=== PATIENT | female | born 1995 | race Caucasian/White ===

== ENCOUNTER 2020-11-28 06:35 | Emergency (ER) | payer SELFPAY ==
[2020-11-28] MEDS ORDERED: Ketorolac 60 MG/2 ML SDV IM ONE (07:09)
[2020-11-28] MEDS ORDERED: Amoxicillin 500 MG Cap PO ONE (07:09)
[2020-11-28] MEDS ORDERED: Lidocaine 2% Viscous Solution 15 ML Cup PO ONE (07:10)
--- NOTE | 2020-11-28 07:16 | EDM.PDOC ---
ED HPI GENERAL MEDICAL PROBLEM - General Chief Complaint: General Stated Complaint: SWOLLEN FACE; INFECTED TOOTH Time Seen by Provider: 11/28/20 06:55 Source of Information: Reports: Patient History Limitations: Reports: No Limitations - History of Present Illness INITIAL COMMENTS - FREE TEXT/NARRATIVE: c/o tooth pain last saw dentist 2y ago, moved from [facility], works at [employer], no local dentist has swell in face no fever scheduled to work this AM Treatments [employer]GER: Reports: Acetaminophen L lower jaw Pain Score (Numeric/FACES): 7 - Related Data Allergies Allergy/AdvReac Type Severity Reaction Status Date / Time No Known Allergies Allergy Verified 11/28/20 06:54 Home Meds: Home Meds Amoxicillin 500 mg PO TID #21 tab 11/28/20 [Rx] Lidocaine 2% [Xylocaine 2% Viscous] 15 ml PO ASDIRECTED #1 cup 11/28/20 [Rx] ED ROS GENERAL - Review of Systems Review Of Systems: See Below Constitutional: Reports: No Symptoms HEENT: Reports: Dental Pain Respiratory: Reports: No Symptoms Cardiovascular: Reports: No Symptoms Endocrine: Reports: No Symptoms GI/Abdominal: Reports: No Symptoms : Reports: No Symptoms Musculoskeletal: Reports: No Symptoms Skin: Reports: No Symptoms Neurological: Reports: No Symptoms Psychiatric: Reports: No Symptoms Hematologic/Lymphatic: Reports: No Symptoms Immunologic: Reports: No Symptoms ED EXAM, GENERAL - Physical Exam Exam: See Below Exam Limited By: No Limitations General Appearance: Alert, WD/WN Nose: Normal Inspection Head: Atraumatic, Normocephalic Neck: Normal Inspection, Supple, Non-Tender, Other (mild swell over L mid mandible, no LNs, deeply eroded tooth #19, mild tender to percussion on side, no red/swell gingiva). No: Lymphadenopathy (R), Lymphadenopathy (L) Respiratory/Chest: No Respiratory Distress Cardiovascular: Regular Rate, Rhythm Course - Vital Signs Last Recorded V/S: Last Vital Signs Temp 36.7 C 11/28/20 06:47 Pulse 87 11/28/20 06:47 Resp 18 11/28/20 06:47 BP 136/73 11/28/20 06:47 Pulse Ox 100 11/28/20 06:47 - Orders/Labs/Meds Orders: Active Orders 24 hr Category Date Time Status Amoxicillin [Amoxil] Med 11/28/20 07:09 Once 500 mg PO ONETIME ONE Ketorolac [Toradol] Med 11/28/20 07:09 Once 60 mg IM ONETIME ONE Lidocaine 2% [Xylocaine 2% Viscous] Med 11/28/20 07:10 Once 15 ml PO ONETIME ONE - Re-Assessments/Exams Free Text/Narrative Re-Assessment/Exam: 11/28/20 07:20 poor dentition, needs cleaning, all molars still present Departure - Departure Time of Disposition: 07:11 Disposition: Home, Self-Care 01 Condition: Good Clinical Impression: Tooth absence, Dental caries - Discharge Information *PRESCRIPTION DRUG MONITORING PROGRAM REVIEWED*: Not Applicable *COPY OF PRESCRIPTION DRUG MONITORING REPORT IN PATIENT CINTHIA: Not Applicable Prescriptions: Amoxicillin 500 mg PO TID #21 tab Lidocaine 2% [Xylocaine 2% Viscous] 15 ml PO ASDIRECTED #1 cup Instructions: Dental Abscess Referrals: PCP,None [Primary Care Provider] - Forms: ED Department Discharge, ED Return to Work/School Form Additional Instructions: For infection, take amoxicillin 500 mg 1 tab 3 times a day for 7 days. For pain, put a thin layer of 2% viscous lidocaine on a cotton ball and bite down every hour as needed. For pain, take acetaminophen 500 mg 2 tabs and ibuprofen 200 mg 3 tabs 4 times a day for 2 days, longer if needed. Use ice for 10 minutes every hour as needed. Eat cool, soft food. Drink cold liquids. Avoid chewing on the left. See a dentist in the next week. Sepsis Event Note (ED) - Evaluation Sepsis Screening Result: No Definite Risk - Focused Exam Vital Signs: Vital Signs Temp Pulse Resp BP Pulse Ox 11/28/20 06:47 36.7 C 87 18 136/73 100 - My Orders Last 24 Hours: My Active Orders 11/28/20 07:09 Amoxicillin [Amoxil] 500 mg PO ONETIME ONE Ketorolac [Toradol] 60 mg IM ONETIME ONE 11/28/20 07:10 Lidocaine 2% [Xylocaine 2% Viscous] 15 ml PO ONETIME ONE - Assessment/Plan Last 24 Hours: My Active Orders 11/28/20 07:09 Amoxicillin [Amoxil] 500 mg PO ONETIME ONE Ketorolac [Toradol] 60 mg IM ONETIME ONE 11/28/20 07:10 Lidocaine 2% [Xylocaine 2% Viscous] 15 ml PO ONETIME ONE
== END 2020-11-28 07:30 | disposition home or self-care (01) ==
LOC: FB.ED 06:35
DX: K02.9 Dental caries, unspecified (principal); K08.139 Complete loss of teeth due to caries, unspecified class
CPT/HCPCS: 96372; 99282; A9270; J1885